=== PATIENT | female | born 1935 | race Caucasian/White ===

== ENCOUNTER 2018-03-16 23:04 | Emergency (ER) | payer OTHER ==
[2018-03-16] MEDS ORDERED: methylPREDNISolone SOD SUCC 125 MG/2 ML VIAL IVP ONE (23:17)
[2018-03-16] MEDS ORDERED: NS 1,000 ML IV ONE (23:17)
[2018-03-16] MEDS ORDERED: FAMOTIDINE 20 MG/2 ML SDV IVP ONE (23:18)
--- NOTE | 2018-03-16 23:20 | EDPHY ---
H & P Stated Complaint: RASH FACE,TORSO SINCE 2097 Time Seen by Provider: 03/16/18 23:18 HPI/ROS: HPI CHIEF COMPLAINT: Allergic reaction HISTORY OF PRESENT ILLNESS: Patient very pleasant 82-year-old female she is visiting from [facility], she has a history of hypertension hyperlipidemia she presents emergency room with a rash started around 9:00 p.m. Her clothes 2 hr ago. The rash appears to be urticaria. It is predominantly under her armpits. Additionally on her low back and around her waistline. She denies any chest pain or shortness of breath. Denies trouble swallowing. Denies GI upset. She denies any new medications or contacts. She denies any new detergents or soaps however she is visiting from [place]. Patient denies fever. Denies recent illness. Denies new medication. Past Medical History: Hypertension, hyperlipidemia Past Surgical History: No recent surgery Social History: Denies daily use of drugs alcohol tobacco. Resides in [place]. Family History: Noncontributory ROS REVIEW OF SYSTEMS: A comprehensive 10 point review of systems is otherwise negative aside from elements mentioned in the history of present illness. Exam Constitutional appears well nontoxic no acute distress, triage nursing summary reviewed, vital signs reviewed, awake/alert. Eyes normal conjunctivae and sclera, EOMI, PERRLA. HENT normal inspection, atraumatic, moist mucus membranes, no epistaxis, neck supple/ no meningismus, no raccoon eyes. Respiratory no stridor, no wheezing, good air moves clear to auscultation bilaterally, normal breath sounds, no respiratory distress, no wheezing. Cardiovascular rate normal, regular rhythm, no murmur, no edema, distal pulses normal. Gastrointestinal soft, non-tender, no rebound, no guarding, normal bowel sounds, no distension, no pulsatile mass. Genitourinary no CVA tenderness. Musculoskeletal no midline vertebral tenderness, full range of motion, no calf swelling, no tenderness of extremities, no meningismus, good pulses, neurovascularly intact. Skin urticaria present. Mainly under her axilla bilaterally, low back waistline, and from waistline. Neurologic awake, alert and oriented x 3, AAOx3, moves all 4 extremities equally, motor intact, sensory intact, CN II-XII intact, normal cerebellar, normal vision, normal speech. Psychiatric normal mood/affect. Heme/Lymph/Immune no lymphadenopathy. Differential Diagnosis: Includes but is not limited to in a particular order acute allergic reaction, contact dermatitis, food allergy, medication allergy, drug rash, Medical Decision Making: Plan for this patient IV establishment basic blood draw, IV Solu-Medrol, IV Pepcid, IV Benadryl. This time she is hemodynamically stable with no respiratory or oropharyngeal symptoms. I do not think that she needs epinephrine. If she progresses with her allergic reaction will consider epinephrine. However will re-evaluate after Benadryl, Solu-Medrol, Pepcid. Re-evaluation: 0207: Patient has been resting comfortably here in the emergency room in no acute distress. Her allergic reaction has not progressed. Lungs are clear. She has no shortness of breath or chest pain. Rash is improving. She has been here for 3 hr plan for 1 more hour of observation. If she continues to have resolution of symptoms and not getting worse I will lower be discharged from the emergency room with 3 days of prednisone, Benadryl Pepcid. Return precautions discussed with her. She understands return emergency room if she develops worsening symptoms includes shortness of breath, chest pain, vomiting, fever worsening rash, trouble swallowing, trouble breathing. She is due to go back to [place] this morning 8:00 a.m.. It is currently 2: 00 a.m.. I recommend that she moves her flight 1 more day to make sure she has no further worsening allergic reaction symptoms today. She is comfortable this plan. Patient resting comfortably. No acute distress. Feels better. Return precautions discussed Source: Patient - Personal History Current Tetanus Diphtheria and Acellular Pertussis (TDAP): Yes - Medical/Surgical History Hx Asthma: No Hx Chronic Respiratory Disease: No Hx Diabetes: No Hx Cardiac Disease: No Hx Renal Disease: No Hx Cirrhosis: No Hx Alcoholism: No Hx HIV/AIDS: No Hx Splenectomy or Spleen Trauma: No Other PMH: HTN, 'KIDNEY STONE SX' - Social History Smoking Status: Never smoked Constitutional: Initial Vital Signs Temperature (C) 36.3 C 03/16/18 23:09 Heart Rate 70 03/16/18 23:09 Respiratory Rate 16 03/16/18 23:09 Blood Pressure 164/70 H 03/16/18 23:09 O2 Sat (%) 98 03/16/18 23:09 O2 Delivery Mode Room Air Allergies/Adverse Reactions: No Known Allergies Allergy (Unverified 03/16/18 23:08) Home Medications: Medication Instructions Recorded Famotidine [Pepcid 20 MG (*)] 20 mg PO BID #6 tab 03/16/18 Lisinopril 03/16/18 SIMVASTATIN 03/16/18 diphenhydrAMINE [Benadryl 25 MG 25 mg PO BID #6 tab 03/16/18 (*)] predniSONE 60 mg PO DAILY #9 tab 03/16/18 Medical Decision Making - Data Points Laboratory Results: Laboratory Results 03/16/18 23:48 03/16/18 23:48 03/16/18 03/16/18 23:48 23:48 WBC 8.24 10^3/uL 10^3/uL (3.80-9.50) RBC 4.37 10^6/uL 10^6/uL (4.18-5.33) Hgb 13.1 g/dL g/dL (12.6-16.3) Hct 39.8 % % (38.0-47.0) MCV 91.1 fL fL (81.5-99.8) MCH 30.0 pg pg (27.9-34.1) MCHC 32.9 g/dL g/dL (32.4-36.7) RDW 12.6 % % (11.5-15.2) Plt Count 233 10^3/uL 10^3/uL (150-400) MPV 9.9 fL fL (8.7-11.7) Neut % (Auto) 46.5 % % (39.3-74.2) Lymph % (Auto) 41.6 % % (15.0-45.0) [place] % (Auto) 8.4 % % (4.5-13.0) Eos % (Auto) 2.2 % % (0.6-7.6) Baso % (Auto) 0.7 % % (0.3-1.7) Nucleat RBC Rel Count 0.0 % % (0.0-0.2) Absolute Neuts (auto) 3.83 10^3/uL 10^3/uL (1.70-6.50) Absolute Lymphs (auto) 3.43 10^3/uL H 10^3/uL (1.00-3.00) Absolute Monos (auto) 0.69 10^3/uL 10^3/uL (0.30-0.80) Absolute Eos (auto) 0.18 10^3/uL 10^3/uL (0.03-0.40) Absolute Basos (auto) 0.06 10^3/uL 10^3/uL (0.02-0.10) Absolute Nucleated RBC 0.00 10^3/uL 10^3/uL (0-0.01) Immature Gran % 0.6 % % (0.0-1.1) Immature Gran # 0.05 10^3/uL 10^3/uL (0.00-0.10) Sodium 141 mEq/L mEq/L (135-145) Potassium 4.0 mEq/L mEq/L (3.5-5.2) Chloride 109 mEq/L mEq/L (97-110) Carbon Dioxide 21 mEq/l L mEq/l (22-31) Anion Gap 11 mEq/L mEq/L (8-16) BUN 19 mg/dL mg/dL (7-23) Creatinine 0.6 mg/dL mg/dL (0.6-1.0) Estimated GFR > 60 Glucose 84 mg/dL mg/dL (70-100) Calcium 8.9 mg/dL mg/dL (8.5-10.4) Medications Given: Discontinued Medications Diphenhydramine HCl (Benadryl Injection) 50 mg IVP EDNOW ONE Stop: 03/16/18 23:19 Last Admin: 03/16/18 23:23 Dose: 50 mg Famotidine (Pepcid) 20 mg IVP EDNOW ONE Stop: 03/16/18 23:19 Last Admin: 03/16/18 23:23 Dose: 20 mg Sodium Chloride (Ns) 1,000 mls @ 0 mls/hr IV EDNOW ONE; Wide Open PRN Reason: Protocol Stop: 03/16/18 23:18 Last Admin: 03/16/18 23:23 Dose: 1,000 mls Methylprednisolone Sodium Succinate (Solu-Medrol) 125 mg IVP EDNOW ONE Stop: 03/16/18 23:18 Last Admin: 03/16/18 23:23 Dose: 125 mg Ondansetron HCl (Zofran Odt) 4 mg PO EDNOW ONE Stop: 03/16/18 23:52 Last Admin: 03/16/18 23:57 Dose: 4 mg Departure - Departure Disposition: Home, Routine, Self-Care Clinical Impression: Allergic reaction Qualifiers: Encounter type: initial encounter Qualified Code(s): T78.40XA - Allergy, unspecified, initial encounter Condition: Good Instructions: Urticaria (ED), Anaphylaxis (ED), Allergies (ED) Additional Instructions: 1. Please take medications for the next 3 days this includes Benadryl, prednisone, Pepcid 2. Return emergency room immediately if you have progression of worsening symptoms includes trouble breathing, trouble swallowing, nausea vomiting or any further questions or concerns. Referrals: NONE *PRIMARY CARE P,. [Primary Care Provider] - As per Instructions Stand Alone Forms: Airline Excuse Prescriptions: diphenhydrAMINE [Benadryl 25 MG (*)] 25 mg PO BID #6 tab Famotidine [Pepcid 20 MG (*)] 20 mg PO BID #6 tab predniSONE 60 mg PO DAILY #9 tab
[2018-03-16] MEDS ORDERED: ONDANSETRON DISINTEGRATING 4 MG TAB PO ONE (23:51)
[2018-03-16 23:52] LABS: PLATELET COUNT 233 10^3/uL (150-400)
--- NOTE | 2018-03-17 00:02 | CPEKG ---
Heart Rate: 60 RR Interval: 1000 P-R Interval: 180 QRSD Interval: 86 QT Interval: 456 QTC Interval: 456 P [place]: 23 QRS [place]: -11 T Wave [place]: -13 EKG Severity - ABNORMAL ECG - EKG Impression: SINUS RHYTHM EKG Impression: PROBABLE INFERIOR INFARCT, AGE INDETERMINATE Electronically Signed By: Elias Costello 17-Mar-2018 06:14:28
[2018-03-17 02:29] VITALS: BP 132/63
== END 2018-03-17 03:01 | disposition home or self-care (01) ==
DX: T78.40XA Allergy, unspecified, initial encounter (principal); E86.9 Volume depletion, unspecified; I10 Essential (primary) hypertension
CPT/HCPCS: 93005; 96361; 96374; 96375; 99284; J1200; J2930

== ENCOUNTER 2018-03-17 21:15 | Observation (INO) | payer OTHER ==
--- NOTE | 2018-03-17 21:36 | EDPHY ---
H & P Stated Complaint: seen last night- hives/burning getting worse Time Seen by Provider: 03/17/18 21:36 HPI/ROS: HPI CHIEF COMPLAINT: Worsening hives. HISTORY OF PRESENT ILLNESS: Patient very pleasant 82-year-old female she presents emergency room after I saw and evaluated her last night for hives. She is visiting her daughter here from [facility]. She presented yesterday with urticaria but no respiratory or GI issues. She now presents back to the emergency room with worsening urticaria. She states she has worsening itching and now is on her scalp. She complains of urticaria on her back. She denies any trouble breathing or swallowing. Denies GI upset. Past Medical History: Hypertension hyperlipidemia Past Surgical History: Denies surgical history recently Social History: Denies daily use drugs alcohol tobacco. Family History: Noncontributory ROS REVIEW OF SYSTEMS: A comprehensive 10 point review of systems is otherwise negative aside from elements mentioned in the history of present illness. Exam Constitutional triage nursing summary reviewed, vital signs reviewed, awake/ alert. Eyes normal conjunctivae and sclera, EOMI, PERRLA. HENT normal inspection, atraumatic, moist mucus membranes, no epistaxis, neck supple/ no meningismus, no raccoon eyes. Respiratory no stridor, no wheezing, good air movement, clear to auscultation bilaterally, normal breath sounds, no respiratory distress, no wheezing. Cardiovascular rate normal, regular rhythm, no murmur, no edema, distal pulses normal. Gastrointestinal soft, non-tender, no rebound, no guarding, normal bowel sounds, no distension, no pulsatile mass. Genitourinary no CVA tenderness. Musculoskeletal no midline vertebral tenderness, full range of motion, no calf swelling, no tenderness of extremities, no meningismus, good pulses, neurovascularly intact. Skin urticaria present on the chin, back, bilateral axilla, waist, sporadic. No particular purpura. Neurologic awake, alert and oriented x 3, AAOx3, moves all 4 extremities equally, motor intact, sensory intact, CN II-XII intact, normal cerebellar, normal vision, normal speech. Psychiatric normal mood/affect. Heme/Lymph/Immune no lymphadenopathy. Differential Diagnosis: Includes but is not limited to in a particular order worsening allergic reaction, contact dermatitis, anaphylaxis, severe allergic reaction, dermatitis, vasculitis Medical Decision Making: Plan for this patient IV establishment with blood draw , IV Decadron, IV Benadryl, IV Zantac and re-evaluate. Re-evaluation: 0231L: Patient re-evaluated there has been really no progression of allergic reaction hives has stayed about the same. No particular purpura on exam. No airway involvement. No GI upset. Discussed treatment options the patient she would feel comfortable being admitted to the hospital. She is a [facility] patient. I did contact [facility] fine with us keeping her here. This time she is hemodynamically stable there is no further progression of allergic reaction. I have given her allergic reaction medications however no significant clinical response. However not getting worse. Plan will be for admission. Source: Patient - Personal History Current Tetanus/Diphtheria Vaccine: Yes - Medical/Surgical History Hx Asthma: No Hx Chronic Respiratory Disease: No Hx Diabetes: No Hx Cardiac Disease: No Hx Renal Disease: No Hx Cirrhosis: No Hx Alcoholism: No Hx HIV/AIDS: No Hx Splenectomy or Spleen Trauma: No Other PMH: HTN, 'KIDNEY STONE SX' - Social History Smoking Status: Never smoked Constitutional: Initial Vital Signs Temperature (C) 36.5 C 03/17/18 21:17 Heart Rate 65 03/17/18 21:17 Respiratory Rate 18 03/17/18 21:17 Blood Pressure 144/68 H 03/17/18 21:17 O2 Sat (%) 96 03/17/18 21:17 O2 Delivery Mode Room Air Allergies/Adverse Reactions: No Known Allergies Allergy (Unverified 03/16/18 23:08) Home Medications: Medication Instructions Recorded Famotidine [Pepcid 20 MG (*)] 20 mg PO BID #6 tab 03/16/18 Lisinopril 03/16/18 SIMVASTATIN 03/16/18 diphenhydrAMINE [Benadryl 25 MG 25 mg PO BID #6 tab 03/16/18 (*)] predniSONE 60 mg PO DAILY #9 tab 03/16/18 Medical Decision Making - Data Points Laboratory Results: Laboratory Results 03/17/18 21:45 03/17/18 21:45 03/17/18 03/17/18 21:45 21:45 WBC 12.86 10^3/uL H 10^3/uL (3.80-9.50) RBC 4.25 10^6/uL 10^6/uL (4.18-5.33) Hgb 12.6 g/dL g/dL (12.6-16.3) Hct 38.7 % % (38.0-47.0) MCV 91.1 fL fL (81.5-99.8) MCH 29.6 pg pg (27.9-34.1) MCHC 32.6 g/dL g/dL (32.4-36.7) RDW 12.7 % % (11.5-15.2) Plt Count 245 10^3/uL 10^3/uL (150-400) MPV 10.3 fL fL (8.7-11.7) Neut % (Auto) 88.1 % H % (39.3-74.2) Lymph % (Auto) 8.8 % L % (15.0-45.0) [place] % (Auto) 2.2 % L % (4.5-13.0) Eos % (Auto) 0.0 % L % (0.6-7.6) Baso % (Auto) 0.2 % L % (0.3-1.7) Nucleat RBC Rel Count 0.0 % % (0.0-0.2) Absolute Neuts (auto) 11.34 10^3/uL H 10^3/uL (1.70-6.50) Absolute Lymphs (auto) 1.13 10^3/uL 10^3/uL (1.00-3.00) Absolute Monos (auto) 0.28 10^3/uL L 10^3/uL (0.30-0.80) Absolute Eos (auto) 0.00 10^3/uL L 10^3/uL (0.03-0.40) Absolute Basos (auto) 0.02 10^3/uL 10^3/uL (0.02-0.10) Absolute Nucleated RBC 0.00 10^3/uL 10^3/uL (0-0.01) Immature Gran % 0.7 % % (0.0-1.1) Immature Gran # 0.09 10^3/uL 10^3/uL (0.00-0.10) ESR 3 MM/HR MM/HR (0-30) Sodium 140 mEq/L mEq/L (135-145) Potassium 4.2 mEq/L mEq/L (3.3-5.0) Chloride 108 mEq/L mEq/L (97-110) Carbon Dioxide 19 mEq/l L mEq/l (22-31) Anion Gap 13 mEq/L mEq/L (8-16) BUN 19 mg/dL mg/dL (7-23) Creatinine 0.7 mg/dL mg/dL (0.6-1.0) Estimated GFR > 60 Glucose 194 mg/dL H mg/dL (70-100) Calcium 9.1 mg/dL mg/dL (8.5-10.4) C-Reactive Protein 5.8 mg/L mg/L (<10.0) Medications Given: Discontinued Medications Dexamethasone (Decadron Injection) 10 mg IVP EDNOW ONE Stop: 03/17/18 21:40 Last Admin: 03/17/18 22:11 Dose: 10 mg Diphenhydramine HCl (Benadryl Injection) 25 mg IVP EDNOW ONE Stop: 03/17/18 21:40 Last Admin: 03/17/18 22:10 Dose: 25 mg Hydroxyzine HCl (Hydroxyzine Hcl) 50 mg PO EDNOW ONE Stop: 03/18/18 01:09 Last Admin: 03/18/18 01:20 Dose: 50 mg Sodium Chloride (Ns) 1,000 mls @ 0 mls/hr IV ONCE ONE PRN Reason: Wide Open Stop: 03/17/18 21:40 Last Admin: 03/17/18 22:09 Dose: 1,000 mls Ranitidine HCl (Zantac) 50 mg IVP EDNOW ONE Stop: 03/17/18 21:40 Last Admin: 03/17/18 22:10 Dose: 50 mg Departure - Departure Disposition: [facility] Inpatient Acute Clinical Impression: Allergic reaction Qualifiers: Encounter type: initial encounter Qualified Code(s): T78.40XA - Allergy, unspecified, initial encounter Condition: Good Instructions: Urticaria (ED) Additional Instructions: 1. Return emergency room if there is worsening symptoms questions or concerns. 2. Prednisone, Benadryl, Pepcid as prescribed. 3. Return if worse. 4. When you return to [place]. Follow up with an signal engineer and her primary care doctor. Referrals: NONE *PRIMARY CARE P,. [Primary Care Provider] - As per Instructions
[2018-03-17] MEDS ORDERED: RANITIDINE 50 MG/2 ML VIAL IVP ONE (21:39)
[2018-03-17] MEDS ORDERED: NS 1,000 ML IV ONE (21:39)
[2018-03-17] MEDS ORDERED: DEXAMETHASONE 10 MG/ML VIAL IVP ONE (21:39)
[2018-03-17 22:05] LABS: PLATELET COUNT 245 10^3/uL (150-400)
[2018-03-18] MEDS ORDERED: hydrOXYzine HCL 50 MG TAB PO ONE (01:08)
[2018-03-18] MEDS ORDERED: ONDANSETRON 4 MG/2 ML VIAL IVP PRN (02:31)
[2018-03-18] MEDS ORDERED: ACETAMINOPHEN 325 MG TAB PO PRN (02:31)
[2018-03-18] MEDS ORDERED: diphenhydrAMINE 25 MG CAP PO PRN (02:31)
[2018-03-18] MEDS ORDERED: hydrALAZINE 20 MG/ML VIAL IVP PRN (02:34)
--- NOTE | 2018-03-18 06:54 | PDGENHP ---
History and Physical - Chief Complaint Hives - History of Present Illness Source-patient provides history and appears reliable. EMR was reviewed and case discussed with ED provider. HPI - pleasant 82-year-old female with past medical history significant for HTN , HLD who presents to the emergency department for the 2nd time in 2 days with complaints of recurrence of diffuse urticaria. Patient reports that she presented to the ED on for her 1st exacerbation of urticaria that started in the afternoon. Patient is unsure of any specific exposures but she does note that she is visiting from [place]. Patient did utilize a new shower body wash swab of with coconut. She also we was exposed to an additive in detergent on her sheets. On when patient returned home from the ER on the 1st visit on she did change although she eats and utilize detergent which she has at home minus additive. She has also stopped using the shower body wash. Additionally patient reports that she did take a dose of NSAID on [id number] yesterday. But she denies any use of NSAID therapy on initial day of exacerbation. Patient denies any fevers chills. She has no respiratory symptoms. Patient denies any dysuria hematuria. She has no previous history of asthma, eczema or other seasonal allergies. History Information - Allergies/Home Medication List Allergies/Adverse Reactions: No Known Allergies Allergy (Unverified 03/16/18 23:08) Home Medications: Lisinopril 03/16/18 [Last Taken Unknown] SIMVASTATIN 03/16/18 [Last Taken Unknown] I have personally reviewed and updated: family history, medical history, social history, surgical history - Past Medical History Additional medical history: HTN, HLD, nephrolithiasis. - Surgical History Additional surgical history: Hysterectomy/single oophorectomy. Lithotripsy. - Family History Additional family history: HTN. No family history of eczema or allergies. 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 Patient's daughter resides in [facility]. Cor status-DNR DNI. Review of Systems Review of Systems: ROS: 10pt was reviewed & negative except for what was stated in HPI & below Constitutional: Reports: chills (Chills last night resolved). Denies: fever, malaise, weakness EENMT: Denies: blurred vision, double vision, mouth swelling, nose congestion, sore throat Cardiac: Reports: other (Yesterday patient did experiencing some tightness and heaviness over her right chest test which patient thought maybe have been related to steroids as she became a little tremulous.). Denies: chest pain Respiratory: Reports: no symptoms. Denies: cough, shortness of breath, wheezing Gastrointestinal: Reports: nausea. Denies: vomitting, abdominal pain, abdominal distention, constipation, diarrhea Genitourinary: Reports: no symptoms, flank pain. Denies: dysuria, hematuria Muscolosketal: Reports: joint pain ( occasional of joint pain). Denies: muscle pain Skin: Reports: no symptoms. Denies: lesions, lumps, rash Neurological: Reports: anxiety (Patient reports some slight anxiety with recurrence of her urticaria but none at baseline.), headache (Occasional). Denies: depressed, numbness, tingling, weakness Hematologic/Lymphatic: Denies: anemia, easy bruising Immunologic/Allergy: Reports: no symptoms. Denies: food allergy, grass allergy , mold allergy, pollen allergy Physical Exam Physical Exam: Selected Entries 03/17/18 21:17 Blood Pressure Automatic Method Heart Rate 65 Respiratory 18 Rate O2 Sat (%) 96 Temperature (C) 36.5 C Blood Pressure 144/68 H Mean Arterial 93 Pressure (MAP) O2 Delivery Room Air Mode Temperature Oral Source Temp Pulse Resp BP Pulse Ox 36.7 C 56 L 14 167/84 H 93 03/18/18 04:00 03/18/18 04:00 03/18/18 04:00 03/18/18 04:00 03/18/18 04:00 Constitutional: no apparent distress, not in pain, other (NAD. Patient is lying quite comfortably in bed. Appears younger than stated age.) Eyes: PERRL, anicteric sclera, EOMI, No scleral injection Ears, Nose, Mouth, Throat: moist mucous membranes, no oral mucosal ulcers, No poor dentition Cardiovascular: regular rate and rhythym, no murmur, rub, or gallop, pulses symmetric bilaterally, No edema Peripheral Pulses: 2+: dorsalis-pedis (R), dorsalis-pedis (L) Respiratory: no respiratory distress, no rales or rhonchi, clear to auscultation , No expiratory wheeze, No rhonchi Gastrointestinal: normoactive bowel sounds, soft, non-tender abdomen, no palpable masses, No distension Genitourinary: no bladder tenderness, No elizabeth in urethra Skin: warm, normal color, rash (Patient with small areas of coalescing macular erythematous lesions below the breast, axillary, upper arms. No open sores.) Musculoskeletal: full muscle strength (Strength grossly normal in upper and lower extremities. Patient sits up independently.), No pain with ROM, No generalized weakness Neurologic: AAOx3, sensation intact bilaterally, other (Nonfocal exam. Patient moves all extremities), No facial droop Psychiatric: interacting appropriately, not encephalopathic, thought process linear, anxious, other (Thought process content and questions are appropriate.) Lymph, Heme, Immunologic: no cervical LAD, no supraclavicular LAD, No petechiae Lab Data & Imaging Review 03/17/18 21:45 03/17/18 21:45 WBC 12.86 10^3/uL (3.80-9.50) H 03/17/18 21:45 RBC 4.25 10^6/uL (4.18-5.33) 03/17/18 21:45 Hgb 12.6 g/dL (12.6-16.3) 03/17/18 21:45 Hct 38.7 % (38.0-47.0) 03/17/18 21:45 MCV 91.1 fL (81.5-99.8) 03/17/18 21:45 MCH 29.6 pg (27.9-34.1) 03/17/18 21:45 MCHC 32.6 g/dL (32.4-36.7) 03/17/18 21:45 RDW 12.7 % (11.5-15.2) 03/17/18 21:45 Plt Count 245 10^3/uL (150-400) 03/17/18 21:45 MPV 10.3 fL (8.7-11.7) 03/17/18 21:45 Neut % (Auto) 88.1 % (39.3-74.2) H 03/17/18 21:45 Lymph % (Auto) 8.8 % (15.0-45.0) L 03/17/18 21:45 Fallon % (Auto) 2.2 % (4.5-13.0) L 03/17/18 21:45 Eos % (Auto) 0.0 % (0.6-7.6) L 03/17/18 21:45 Baso % (Auto) 0.2 % (0.3-1.7) L 03/17/18 21:45 Nucleat RBC Rel Count 0.0 % (0.0-0.2) 03/17/18 21:45 Absolute Neuts (auto) 11.34 10^3/uL (1.70-6.50) H 03/17/18 21:45 Absolute Lymphs (auto) 1.13 10^3/uL (1.00-3.00) 03/17/18 21:45 Absolute Monos (auto) 0.28 10^3/uL (0.30-0.80) L 03/17/18 21:45 Absolute Eos (auto) 0.00 10^3/uL (0.03-0.40) L 03/17/18 21:45 Absolute Basos (auto) 0.02 10^3/uL (0.02-0.10) 03/17/18 21:45 Absolute Nucleated RBC 0.00 10^3/uL (0-0.01) 03/17/18 21:45 Immature Gran % 0.7 % (0.0-1.1) 03/17/18 21:45 Immature Gran # 0.09 10^3/uL (0.00-0.10) 03/17/18 21:45 ESR 3 MM/HR (0-30) 03/17/18 21:45 Sodium 140 mEq/L (135-145) 03/17/18 21:45 Potassium 4.2 mEq/L (3.3-5.0) 03/17/18 21:45 Chloride 108 mEq/L (97-110) 03/17/18 21:45 Carbon Dioxide 19 mEq/l (22-31) L 03/17/18 21:45 Anion Gap 13 mEq/L (8-16) 03/17/18 21:45 BUN 19 mg/dL (7-23) 03/17/18 21:45 Creatinine 0.7 mg/dL (0.6-1.0) 03/17/18 21:45 Estimated GFR > 60 03/17/18 21:45 Glucose 194 mg/dL (70-100) H 03/17/18 21:45 Calcium 9.1 mg/dL (8.5-10.4) 03/17/18 21:45 C-Reactive Protein 5.8 mg/L (<10.0) 03/17/18 21:45 Assessment & Plan Assessment: Pleasant 82-year-old female presents for 2nd day in a row with complaints of increasing hives diffusely. Urticaria - etiology for patient's reaction is unclear at this time. I did review with the patient she did take a dose of NSAIDs yesterday prior to onset of symptoms but not the day previously. Additionally she has not had any viral type symptoms. She does take lisinopril but has not had a reaction previously. She does not have any complaints of angioedema making this allergy less likely. She is recently visiting from [place]. No previous history of seasonal allergies or allergic rhinitis. Patient has changed the bed sheets in use free from foreign detergents, soaps, lotions. Will plan to continue twice daily dosing of steroids may consider extending the doses patient only has 2-3 tabs left of her prescription from 2 days previously. Patient's rash is improving slowly on and is nearly resolved at this time. Discussed with patient use of antihistamines and possibly other [id number] including Claritin or Zyrtec in addition to Benadryl. She may continue with Pepcid which is also available [id number]. Clarify with the patient the prednisone is the only medication by prescription remainder available over the counter. Patient is concerned that as she travels she may have additional episodes and was enquiring regarding a taper. Will defer to day hospitalist after their a.m. Assessment regarding continued burst verses a taper. I did review with the patient concerning signs symptoms that require patient to return to the ED for emergent evaluation otherwise recurrence of symptoms may be a possibility in this is discussed with the patient that she does not necessarily need to return to the hospital until she develops any red flag symptoms and could attempt to treat with antihistamines. Leukocytosis-this is likely related to de marginalization in setting of patient' s steroid therapy. Patient is afebrile. Chronic medical issues HLD-resume statin at discharge. Benign essential hypertension - continue lisinopril. Did review with the patient's I am symptoms of angioedema and to return to hospital for the symptoms. FEN - saline lock IV. Encourage oral hydration. Electrolyte monitoring and replacement p.r.n.. Diet as tolerated. PPX-SCDs. Encourage mobilization. If patient should stay additional day consider anticoagulation. Cor status-DNR DNI Disposition-patient admitted to observation status on medical floor for monitoring and resolution of her urticaria.
[2018-03-18] MEDS ORDERED: predniSONE 20 MG TAB PO SCH (09:00)
--- NOTE | 2018-03-18 11:09 | GDS ---
[f rep st] DISCHARGE SUMMARY DISCHARGE DIAGNOSIS: 1. Urticaria, unclear etiology. 2. Hypertension. 3. Dyslipidemia. HOSPITAL COURSE: The patient is an 82-year-old who presented to the emergency department for the sec ond time in 2 days for complaints of recurrent diffuse urticaria. After her first exacerbation, she was treated with prednisone, Benadryl, and this at home. She became rash free for several hours. Ho wever, it recurred with a vengeance and came back to the emergency room. She was admitted overnight for observation, and by the time I saw her in the morning, her rash had again disappeared. Unfortuna tely, it is unclear as to the etiology of her urticaria. It certainly could be some sort of soap or detergent she was exposed to and she will watch that. However, she is also on lisinopril and simvast atin and, although it would be unusual to get a reaction to this several years into her course, cert ainly, the lisinopril may be a cause, so I had her stop both of her medications for the short term. She will be discharged on a course of prednisone 40 mg daily for the next few days. She will continu e Zyrtec and ranitidine for at least a week or 2 after her rash is completely resolved. When she fol lows up with her physician in [place], they can reintroduce the medication one-by-one to see if kevin vargas has recurrent symptoms. CONDITION ON DISCHARGE: Good. DISCHARGE MEDICATIONS: Please see discharge medication form. FOLLOWUP: Will be with her primary care provider. /[id number]/MODL
[2018-03-18 13:08] VITALS: BP 137/65
--- NOTE | 2018-03-18 17:15 | ASMTLACE ---
LACE Length of stay for Answers: Less than 1 day current admission Acuity / Level of Answers: No Care: Did the patient have an inpatient admission? Comorbidities - select Answers: Other Notes: HTN, HLD nephrolithiasi s all that apply # of Emergency department Answers: 1-2 visits in the last 6 months Score: 2 Date Signed: 03/18/2018 10:59 AM Electronically Signed By:Paula Lacy RN
--- NOTE | 2018-03-19 13:42 | ASDISCHSUM ---
Discharge Information Plan Status:Home with No Needs Medically Cleared to Leave:03/18/2018 Discharge Date:03/18/2018 CM D/C Disposition:Home, Routine, Self-Care ADT D/C Disposition:Home, Routine, Self-Care Projected Discharge Date:03/18/2018 Transportation at D/C:Family Discharge Delay Reason: Follow-Up Date:03/18/2018 Discharge Slot: Final Diagnosis: Placement Information Patient Contact Information Contact Name:ALISE Relationship:Daughter Address: Work Phone: City: [facility] Phone: State/Zip Code: Email: Financial Information Financial Class:Medicare Advantage Plans Primary Plan Desc:[employer] ADVANTAGE OUTPAT Primary Plan Number:[id number] Secondary Plan Desc: Secondary Plan Number: Assessment Information LACE LACE Length of stay for Answers: Less than 1 day current admission Acuity / Level of Answers: No Care: Did the patient have an inpatient admission? Comorbidities - select Answers: Other Notes: HTN, HLD nephrolithiasi s all that apply # of Emergency department Answers: 1-2 visits in the last 6 months Score: 2 Date Signed: 03/18/2018 10:59 AM Electronically Signed By:Paula Lacy RN Intervention Information
== END 2018-03-18 11:32 | disposition home or self-care (01) ==
LOC: F2W 03-18 03:24
PROVIDERS: ADMIT Family Medicine; ATTEND Family Medicine
DX: L50.9 Urticaria, unspecified (principal); I10 Essential (primary) hypertension; E78.5 Hyperlipidemia, unspecified
CPT/HCPCS: G0378; J1100; J1200; J2780; J7512; 96374